=== PATIENT | female | born 1955 | race Two or more races ===

== ENCOUNTER 2017-04-08 01:26 | Emergency (ER) | payer BC, MEDICAID, OTHER ==
[~2017-04-08] VITALS: Ht 157.5 cm; Wt 70.8 kg
[~2017-04-08 01:26] MED LIST: ADAL20KI; GLYB5TAB66; INSU70IN9
[2017-04-08 01:48] VITALS: BP 155/92
[2017-04-08 02:17] LABS: Basophils # (auto) 0 uL; Basophils % (auto) 0.5 % (0.0-2.0); CONDITION Y; Eosinophils # (auto) 0.1 uL; Eosinophils % (auto) 1.9 % (0.0-7.0); Hematocrit 38.7 % (36.0-46.0); Hemoglobin 13.3 g/dL (12.2-16.2); Lymphocytes % (auto) 46.1 % (10.0-50.0); Mean Corpuscular Hemoglobin 30.3 pg (28.0-32.0); Mean Corpuscular Hgb Conc. 34.3 g/dL (32.0-36.0); Mean Corpuscular Volume 88.3 fL (80.0-100.0); Mean Platelet Volume 8.3 fL (7.4-10.4); Monocytes # (auto) 0.6 uL; Monocytes % (auto) 8.7 % (0.0-12.0); Neutrophils # (auto) 2.8 uL; Neutrophils % (auto) 42.8 % (37.0-80.0); Platelet Count (auto) 326 10^3/uL (140-450); Red Cell Distribution Width 13.4 % (11.6-16.0); White Blood Cell 6.4 10^3/uL (4.4-10.8)
[2017-04-08 02:33] LABS: Albumin 3.5 g/dL (3.4-5.0); BUN/Creatinine Ratio 28.1; Calcium 8.7 mg/dL (8.5-10.1); Potassium 3.8 mmol/L (3.5-5.1)
[2017-04-08 02:33] LABS: Urine Bilirubin Negative (Negative); Urine Blood Negative /uL (Negative); Urine Color Yellow (Yellow); Urine Glucose 4+ mg/dL (Normal); Urine Ketone TRACE (Negative); Urine Mucus FEW (None Seen); Urine Nitrite Negative (Negative); Urine RBC 1 /hpf (0 - 4); Urine Squamous Epithelial Cell FEW /hpf (<5); Urine Urobilinogen Normal (Negative); Urine pH 5.5 (5.0-8.0)
[2017-04-08 02:35] LABS: Bilirubin, Total 0.6 mg/dL (0.2-1.0); Total Protein 7.6 g/dL (6.4-8.2)
[2017-04-08 03:19] LABS: INR 1.05 (0.9-1.15); Partial Thromboplastin Time 23.4 sec (22.64-33.71); Prothrombin Time 11.4 sec (9.37-12.3)
== END 2017-04-08 04:26 | disposition left against medical advice (07) ==
LOC: ER 01:26
DX: E11.65 Type 2 diabetes mellitus with hyperglycemia (principal); Z53.21 Procedure and treatment not carried out due to patient leaving prior to being seen by health care provider
CPT/HCPCS: 36415; 80053; 81001; 81025; 82962; 85025; 85610; 85730

== ENCOUNTER 2018-02-10 14:33 | Emergency (ER) | payer MEDICARE, MEDICAID ==
[~2018-02-10] VITALS: Ht 157.5 cm; Wt 68.0 kg
[2018-02-10] MEDS ORDERED: KETOROLAC TROMETH 60MG/2ML VIAL IM ONE (17:00)
[2018-02-10 17:30] VITALS: BP 162/74
== END 2018-02-10 17:34 | disposition home or self-care (01) ==
LOC: ER 14:39
DX: M84.334 Stress fracture, left radius (principal); M13.832 Other specified arthritis, left wrist; E11.9 Type 2 diabetes mellitus without complications; I10 Essential (primary) hypertension; X58.XXXA Exposure to other specified factors, initial encounter; Y93.89 Activity, other specified; Y92.89 Other specified places as the place of occurrence of the external cause; Y99.8 Other external cause status
CPT/HCPCS: 73110; 82962; 96372; 99284; J1885

== ENCOUNTER 2018-11-04 21:44 | Inpatient (IN) | payer OTHER, MEDICAID ==
[~2018-11-04] VITALS: Ht 157.5 cm; Wt 70.3 kg
[2018-11-04 23:08] LABS: Urine Bacteria MOD /hpf (None Seen); Urine Blood Negative /uL (Negative); Urine Mucus FEW (None Seen); Urine Specific Gravity 1.008 (1.001-1.035); Urine WBC 65 /hpf (0 - 5); Urine WBC Clumps PRESENT /hpf (None Seen)
[2018-11-04 23:47] LABS: Basophils # (auto) 0 uL; Basophils % (auto) 0.3 % (0.0-2.0); Eosinophils # (auto) 0.1 uL; Hematocrit 38.2 % (36.0-46.0); Hemoglobin 12.7 g/dL (12.2-16.2); Lymphocytes # (auto) 3.1 uL; Lymphocytes % (auto) 42.5 % (10.0-50.0); Mean Corpuscular Hemoglobin 29.7 pg (28.0-32.0); Mean Corpuscular Hgb Conc. 33.2 g/dL (32.0-36.0); Mean Corpuscular Volume 89.6 fL (80.0-100.0); Monocytes # (auto) 0.5 uL; Monocytes % (auto) 6.6 % (0.0-12.0); Neutrophils # (auto) 3.5 uL; Neutrophils % (auto) 48.6 % (37.0-80.0); Nucleated Red Blood Cells % 0.1 %; Platelet Count (auto) 332 10^3/uL (140-450); Red Blood Cells 4.27 10^6/uL (4.0-5.20); Red Cell Distribution Width 13.5 % (11.8-14.3); White Blood Cell 7.3 10^3/uL (4.4-10.8)
[2018-11-04 23:58] LABS: Prothrombin Time 10.7 sec (9.27-12.13)
[2018-11-05 00:01] LABS: Alanine Aminotransferase 24 U/L (13-56); Albumin 3.7 g/dL (3.4-5.0); Anion Gap 5 (5-15); Aspartate Aminotransferase 15 U/L (15-37); Blood Urea Nitrogen 14 mg/dL (7-18); Calcium 8.9 mg/dL (8.5-10.1); Carbon Dioxide 27 mmol/L (21-32); Chloride 107 mmol/L (98-107); Glucose 132 mg/dL (74-106); Potassium 3.9 mmol/L (3.5-5.1); Sodium 139 mmol/L (136-145)
[2018-11-05 00:06] LABS: Alkaline Phosphatase 76 U/L (45-117); Bilirubin, Total 0.5 mg/dL (0.2-1.0); GFR African American 127 mL/min; GFR Non-African American 105 mL/min; Total Protein 7.6 g/dL (6.4-8.2)
[2018-11-05] MEDS ORDERED: SODIUM CHLORIDE 0.9% 500 ML IV ONE (06:54)
[2018-11-05] MEDS ORDERED: SODIUM CHLORIDE 0.9% 1,000 ML IV ONE (06:54)
[2018-11-05] MEDS ORDERED: cefTRIAXone 1GM/50ML D5W 50 ML IV ONE (07:00)
[2018-11-05] MEDS ORDERED: MECLIZINE HCL 25 MG TAB PO ONE (07:00)
[2018-11-05] MEDS ORDERED: SODIUM CHLORIDE 0.9% 1,000 ML IVB ONE (07:24)
[2018-11-05] MEDS ORDERED: InsuLIN REG 1unit/0.01ml Soln (100units/ml) SC SCH ×2 (11:30→22:00)
[2018-11-05] MEDS ORDERED: ACCU-CHEK COMFORT CURVE STRIP VI SCH (11:30)
[2018-11-05] MEDS ORDERED: LABETALOL HCL 5 MG/ML ML 20ML VIAL IV PRN (11:30)
[2018-11-05] MEDS ORDERED: DEXTROSE (50%) 50ML SYRG IV PRN (11:30)
[2018-11-05 14:30] VITALS: BP 126/72
[2018-11-06] MEDS ORDERED: ASPirin 81 mg TAB PO ONE (10:00)
[2018-11-06] MEDS ORDERED: ATORVASTATIN 20 MG TAB PO ONE (10:00)
== END 2018-11-05 15:02 | disposition home or self-care (01) | DRG 69 ==
LOC: ER 21:44 → TELE 11-05 11:34
PROVIDERS: ADMIT Internal Medicine; ATTEND Internal Medicine
DX: G45.9 Transient cerebral ischemic attack, unspecified (principal); I10 Essential (primary) hypertension; E11.65 Type 2 diabetes mellitus with hyperglycemia; M06.9 Rheumatoid arthritis, unspecified
CPT/HCPCS: 36415; 70450; 70545; 70551; 71046; 80053; 81001; 82962; 83735; 84443; 84484; 85025; 85610; 85730; 93005; 93886; 96361; 96365; G0378; J0696

== ENCOUNTER 2020-12-16 15:46 | Emergency (ER) | payer MEDICARE, MEDICAID ==
[~2020-12-16] VITALS: Ht 157.5 cm; Wt 72.6 kg
[~2020-12-16 15:46] MED LIST changes: +ATOR20TA PO; +METO25TA93 PO; +OMEP-335 PO
[2020-12-16 16:57] LABS: Urine Bacteria FEW /hpf (None Seen); Urine Blood Negative /uL (Negative); Urine Specific Gravity 1.014 (1.001-1.035); Urine WBC 68 /hpf (0 - 5); Urine WBC Clumps PRESENT /hpf (None Seen)
[2020-12-16 17:07] LABS: Basophils # (auto) 0 10 ^3/uL (0-0.2); Basophils % (auto) 0.5 % (0.0-2.0); Eosinophils # (auto) 0.2 10 ^3/uL (0-0.8); Eosinophils % (auto) 2.6 % (0.0-7.0); Lymphocytes # (auto) 2.1 10 ^3/uL (0.4-5.4); Lymphocytes % (auto) 29.7 % (10.0-50.0); Mean Corpuscular Hgb Conc. 34.2 g/dL (32.0-36.0); Mean Corpuscular Volume 87.7 fL (80.0-100.0); Monocytes # (auto) 0.6 10 ^3/uL (0-1.3); Monocytes % (auto) 7.9 % (0.0-12.0); Neutrophils # (auto) 4.2 10 ^3/uL (1.6-8.6); Neutrophils % (auto) 59.3 % (37.0-80.0); Nucleated Red Blood Cells % 0.2 %; Platelet Count (auto) 311 10^3/uL (140-450); Red Blood Cells 3.99 10^6/uL (4.0-5.20); Red Cell Distribution Width 13.1 % (11.8-14.3); White Blood Cell 7.2 10^3/uL (4.4-10.8)
[2020-12-16 17:23] LABS: Albumin 3.4 g/dL (3.4-5.0); Calcium 8.8 mg/dL (8.5-10.1); Magnesium 2.3 mg/dL (1.6-2.6); Potassium 4.3 mmol/L (3.5-5.1)
[2020-12-16 17:28] LABS: BUN/Creatinine Ratio 22.4; Bilirubin, Total 0.4 mg/dL (0.2-1.0); Total Protein 7.3 g/dL (6.4-8.2)
[2020-12-16] MEDS ORDERED: cefTRIAXone 1GM/50ML D5W 50 ML IV ONE (18:00)
[2020-12-16] MEDS ORDERED: SODIUM CHLORIDE 0.9% 1,000 ML IV ONE (18:00)
[2020-12-16] MEDS ORDERED: ONDANSETRON HCL 4 MG/2 ML VIAL IV ONE (18:00)
[2020-12-16 18:51] VITALS: BP 112/83
[2020-12-16] MEDS ORDERED: KETOROLAC TROMETH 30 MG/ML 1ML VIAL IV ONE (19:00)
== END 2020-12-16 19:10 | disposition home or self-care (01) ==
LOC: ER 15:46
DX: N39.0 Urinary tract infection, site not specified (principal); I10 Essential (primary) hypertension; E11.9 Type 2 diabetes mellitus without complications; Z79.4 Long term (current) use of insulin; Z79.899 Other long term (current) drug therapy; Z86.73 Personal history of transient ischemic attack (TIA), and cerebral infarction without residual deficits; Z90.49 Acquired absence of other specified parts of digestive tract; Z90.710 Acquired absence of both cervix and uterus
CPT/HCPCS: 36415; 74176; 80053; 81001; 83690; 83735; 85025; 87086; 96365; 96375; 99284; J0696; J1885; J2405; 87088; 87186

== ENCOUNTER 2021-07-01 06:05 | Inpatient (IN) | payer MEDICARE, MEDICAID ==
[~2021-07-01] VITALS: Ht 157.5 cm; Wt 70.4 kg
[2021-07-01] MEDS ORDERED: ALUM & MAG HYDROX-SIMETH LIQ(MAALOX) 30 ML PO ONE (07:30)
[2021-07-01] MEDS ORDERED: LIDOCAINE VISCOUS 2% 15ML UD PO ONE (07:30)
[2021-07-01] MEDS ORDERED: DONNATAL 5ml ORAL Elix (BELLADONNA ALK-PHENOBARB) PO ONE (07:30)
[2021-07-01 08:18] LABS: Basophils # (auto) 0 10 ^3/uL (0-0.2); Basophils % (auto) 0.3 % (0.0-2.0); Eosinophils # (auto) 0 10 ^3/uL (0-0.8); Eosinophils % (auto) 0.2 % (0.0-7.0); Hematocrit 35.1 % (36.0-46.0); Hemoglobin 11.8 g/dL (12.2-16.2); Lymphocytes # (auto) 1.5 10 ^3/uL (0.4-5.4); Lymphocytes % (auto) 14.2 % (10.0-50.0); Mean Corpuscular Hemoglobin 29.2 pg (28.0-32.0); Mean Corpuscular Hgb Conc. 33.7 g/dL (32.0-36.0); Mean Corpuscular Volume 86.6 fL (80.0-100.0); Monocytes # (auto) 0.8 10 ^3/uL (0-1.3); Monocytes % (auto) 6.9 % (0.0-12.0); Neutrophils # (auto) 8.5 10 ^3/uL (1.6-8.6); Neutrophils % (auto) 78.4 % (37.0-80.0); Red Blood Cells 4.05 10^6/uL (4.0-5.20); Red Cell Distribution Width 13.9 % (11.8-14.3); White Blood Cell 10.8 10^3/uL (4.4-10.8)
[2021-07-01] MEDS ORDERED: IOHEXOL 300 MG/ML 100ML BOTTLE IJ ONE (08:23)
[2021-07-01 08:36] LABS: Albumin 3.1 g/dL (3.4-5.0); Calcium 9.1 mg/dL (8.5-10.1); Magnesium 1.9 mg/dL (1.6-2.6); Potassium 3.8 mmol/L (3.5-5.1)
[2021-07-01 08:39] LABS: BUN/Creatinine Ratio 26.9; Bilirubin, Total 0.8 mg/dL (0.2-1.0); Total Protein 7.5 g/dL (6.4-8.2)
[2021-07-01] MEDS ORDERED: ONDANSETRON HCL 4 MG/2 ML VIAL IV ONE (08:45)
[2021-07-01] MEDS ORDERED: MORPHINE SULFATE 4 MG/ML SYR/VIAL IV ONE (08:45)
[2021-07-01] MEDS ORDERED: PANTOPRAZOLE 40 MG/10 ML VIAL INJ IV ONE (08:45)
[2021-07-01] MEDS ORDERED: metroNIDAZOLE 500MG/100ML 100 ML IV ONE (10:00)
[2021-07-01] MEDS ORDERED: cefTRIAXone 1GM/50ML D5W 50 ML IV ONE (10:00)
[2021-07-01 12:07] LABS: Urine Bacteria NONE SEEN /hpf (None Seen); Urine Blood Negative /uL (Negative); Urine Mucus FEW (None Seen); Urine WBC 1 /hpf (0 - 5)
[2021-07-01 12:15] LABS: Urine Specific Gravity > 1.050 (1.001-1.035)
[2021-07-01] MEDS ORDERED: MORPHINE SULFATE INJECTION 2 MG/ML SYRG IV PRN ×2 (13:00→15:15)
[2021-07-01] MEDS ORDERED: NITROGLYCERIN 0.4 MG SL TAB SL PRN ×2 (13:00→15:15)
[2021-07-01] MEDS: MORPHINE SULFATE 4 MG/ML SYR/VIAL IV PRN ×2 (13:26→20:56)
[2021-07-01] MEDS: ONDANSETRON HCL 4 MG/2 ML VIAL IV PRN ×2 (13:27→20:56)
[2021-07-01] MEDS ORDERED: IBUP600T28 PO (14:44)
[2021-07-01] MEDS ORDERED: ATOR10TA52 PO (14:44)
[2021-07-01] MEDS ORDERED: METF-370 PO (14:44)
[2021-07-01] MEDS ORDERED: ONDA-188 PO (14:44)
[2021-07-01] MEDS ORDERED: FOLI1TAB6 PO (14:44)
[2021-07-01] MEDS ORDERED: OMEP-263 PO (14:44)
[2021-07-01] MEDS ORDERED: INSU100I61 SC (14:44)
[2021-07-01] MEDS ORDERED: LISI20TA28 PO (14:44)
[2021-07-01] MEDS ORDERED: OMEG300C7 PO (14:45)
[2021-07-01] MEDS ORDERED: GABA300C10 PO (14:45)
[2021-07-01] MEDS ORDERED: DOCU-80 PO (14:45)
[2021-07-01] MEDS ORDERED: HYDR-4833 PO (14:46)
[2021-07-01] MEDS ORDERED: FAMO40TA7 PO (14:47)
[2021-07-01] MEDS ORDERED: INSUINJ37 SC (14:49)
[2021-07-01] MEDS ORDERED: DEXTROSE (50%) 50ML SYRG IV PRN (15:00)
[2021-07-01] MEDS ORDERED: hydrALAZINE HCL 20 MG/ML VL IV PRN (15:00)
[2021-07-01] MEDS ORDERED: ACETAMINOPHEN 325 MG TAB PO PRN (15:15)
[2021-07-01] MEDS ORDERED: DOCUSATE SOD 100 MG CAP PO PRN (15:15)
[2021-07-01] MEDS ORDERED: LORazepam 0.5 MG TAB PO PRN (15:15)
[2021-07-01] MEDS ORDERED: ALUM & MAG HYDROX-SIMETH LIQ(MAALOX) 30 ML PO PRN (15:15)
[2021-07-01 15:50] LABS: Cholesterol 181 mg/dL (< 200)
[2021-07-01 15:53] LABS: HDL Cholesterol 66 mg/dL (40-59); LDL Cholesterol 98 mg/dL (< 100); Triglycerides 65 mg/dL (< 150)
[2021-07-01 15:53] LABS: Free T4 (Free Thyroxine) 1.3 ng/dL (0.89-1.76)
[2021-07-01 15:54] LABS: Free T3 2.56 pg/mL (2.3-4.2)
[2021-07-01 16:32] VITALS: BP 125/71
[2021-07-01] MEDS: ACCU-CHEK COMFORT CURVE STRIP VI SCH ×2 (16:57→22:00)
[2021-07-01] MEDS: SODIUM CHLORIDE 0.9% 1,000 ML IV SCH (16:57)
[2021-07-01] MEDS: InsuLIN REG 1unit/0.01ml Soln (100units/ml) SC SCH ×2 (16:57→22:00)
[2021-07-01 19:27] LABS: Amphetamine Screen, Urine NEGATIVE (NEGATIVE); Barbiturate Scree,Urine NEGATIVE (NEGATIVE); Benzodiazephine Screen, Urine NEGATIVE (NEGATIVE); Cannabinoid Screen, Urine NEGATIVE (NEGATIVE); Cocaine Screen, Urine NEGATIVE (NEGATIVE); Phencyclidine Screen, Urine NEGATIVE (NEGATIVE)
[2021-07-01 19:35] LABS: Opiate Scree,Urine POSITIVE (NEGATIVE)
[2021-07-01] MEDS: metroNIDAZOLE 500MG/100ML 100 ML IV SCH (22:00)
[2021-07-01] MEDS: ATORVASTATIN 20 MG TAB PO SCH (22:00)
[2021-07-01 22:06] VITALS: BP 123/66
[2021-07-02] MEDS: ONDANSETRON HCL 4 MG/2 ML VIAL IV PRN ×2 (04:59→21:43)
[2021-07-02] MEDS: MORPHINE SULFATE 4 MG/ML SYR/VIAL IV PRN ×3 (04:59→17:02)
[2021-07-02 05:00] VITALS: BP 132/70
[2021-07-02] MEDS: metroNIDAZOLE 500MG/100ML 100 ML IV SCH ×3 (05:51→21:41)
[2021-07-02 06:09] LABS: Basophils # (auto) 0 10 ^3/uL (0-0.2); Basophils % (auto) 0.4 % (0.0-2.0); Eosinophils # (auto) 0.2 10 ^3/uL (0-0.8); Eosinophils % (auto) 1.6 % (0.0-7.0); Hematocrit 31.7 % (36.0-46.0); Hemoglobin 10.6 g/dL (12.2-16.2); Lymphocytes # (auto) 1.9 10 ^3/uL (0.4-5.4); Lymphocytes % (auto) 20.1 % (10.0-50.0); Mean Corpuscular Hemoglobin 29.5 pg (28.0-32.0); Mean Corpuscular Hgb Conc. 33.5 g/dL (32.0-36.0); Mean Corpuscular Volume 88.2 fL (80.0-100.0); Monocytes # (auto) 0.8 10 ^3/uL (0-1.3); Monocytes % (auto) 7.9 % (0.0-12.0); Neutrophils # (auto) 6.7 10 ^3/uL (1.6-8.6); Red Blood Cells 3.59 10^6/uL (4.0-5.20); Red Cell Distribution Width 13.9 % (11.8-14.3); White Blood Cell 9.6 10^3/uL (4.4-10.8)
[2021-07-02 06:18] LABS: INR 1.16 (0.9-1.15); Partial Thromboplastin Time 27.3 sec (23.6-33.0)
[2021-07-02 06:25] LABS: Albumin 2.4 g/dL (3.4-5.0); Calcium 8.3 mg/dL (8.5-10.1); Magnesium 2.5 mg/dL (1.6-2.6); Potassium 3.9 mmol/L (3.5-5.1)
[2021-07-02 06:33] LABS: BUN/Creatinine Ratio 22.4; Bilirubin, Total 0.7 mg/dL (0.2-1.0); Total Protein 6.4 g/dL (6.4-8.2); Uric Acid 3.1 mg/dL (2.6-6.0)
[2021-07-02] MEDS: InsuLIN REG 1unit/0.01ml Soln (100units/ml) SC SCH ×4 (07:00→21:41)
[2021-07-02] MEDS: ACCU-CHEK COMFORT CURVE STRIP VI SCH ×4 (08:35→21:42)
[2021-07-02 09:48] VITALS: BP 132/68
[2021-07-02] MEDS: PANTOPRAZOLE 40 MG/10 ML VIAL INJ IV SCH (10:55)
[2021-07-02] MEDS: SODIUM CHLORIDE 0.9% 1,000 ML IV SCH (10:55)
[2021-07-02] MEDS: cefTRIAXone 1GM/50ML D5W 50 ML IV SCH (10:55)
[2021-07-02 13:18] VITALS: BP 124/58
[2021-07-02 16:47] VITALS: BP 150/69
[2021-07-02] MEDS ORDERED: DEXTROSE (50%) 50ML SYRG IV PRN (18:00)
[2021-07-02] MEDS: ATORVASTATIN 20 MG TAB PO SCH (21:41)
[2021-07-02] MEDS: HYDROcodone-ACET 5/325MG TAB PO PRN (21:42)
[2021-07-02 22:00] VITALS: BP 142/63
[2021-07-03] MEDS: SODIUM CHLORIDE 0.9% 1,000 ML IV SCH ×2 (00:20→17:00)
[2021-07-03] MEDS: ONDANSETRON HCL 4 MG/2 ML VIAL IV PRN ×4 (04:45→21:52)
[2021-07-03] MEDS: MORPHINE SULFATE 4 MG/ML SYR/VIAL IV PRN ×3 (04:58→17:00)
[2021-07-03 05:00] VITALS: BP 141/74
[2021-07-03] MEDS: InsuLIN REG 1unit/0.01ml Soln (100units/ml) SC SCH ×4 (06:13→22:28)
[2021-07-03] MEDS: ACCU-CHEK COMFORT CURVE STRIP VI SCH ×4 (06:13→22:27)
[2021-07-03] MEDS: metroNIDAZOLE 500MG/100ML 100 ML IV SCH ×3 (06:15→22:26)
[2021-07-03] MEDS: PANTOPRAZOLE 40 MG/10 ML VIAL INJ IV SCH (08:34)
[2021-07-03] MEDS: cefTRIAXone 1GM/50ML D5W 50 ML IV SCH (08:34)
[2021-07-03 09:12] VITALS: BP 124/62
[2021-07-03 13:00] VITALS: BP 132/82
[2021-07-03 16:46] VITALS: BP 159/80
[2021-07-03] MEDS: MORPHINE SULFATE INJECTION 2 MG/ML SYRG IV PRN ×2 (17:00→21:51)
[2021-07-03 22:01] VITALS: BP 147/65
[2021-07-03] MEDS: ATORVASTATIN 20 MG TAB PO SCH (22:26)
[2021-07-04 05:00] VITALS: BP 114/59
[2021-07-04] MEDS: metroNIDAZOLE 500MG/100ML 100 ML IV SCH ×3 (06:49→23:19)
[2021-07-04] MEDS: ACCU-CHEK COMFORT CURVE STRIP VI SCH ×4 (06:50→23:21)
[2021-07-04] MEDS: InsuLIN REG 1unit/0.01ml Soln (100units/ml) SC SCH ×4 (06:51→23:24)
[2021-07-04] MEDS: MORPHINE SULFATE INJECTION 2 MG/ML SYRG IV PRN ×2 (07:13→13:59)
[2021-07-04] MEDS: ONDANSETRON HCL 4 MG/2 ML VIAL IV PRN ×2 (07:14→13:53)
[2021-07-04 09:24] VITALS: BP 114/76
[2021-07-04] MEDS: SODIUM CHLORIDE 0.9% 1,000 ML IV SCH (09:53)
[2021-07-04] MEDS: cefTRIAXone 1GM/50ML D5W 50 ML IV SCH (09:53)
[2021-07-04] MEDS ORDERED: GOLYTELY 4L KIT PO ONE (11:00)
[2021-07-04] MEDS: PANTOPRAZOLE 40 MG/10 ML VIAL INJ IV SCH (12:37)
[2021-07-04 13:00] VITALS: BP 130/86
[2021-07-04] MEDS: METOCLOPRAMIDE HCL 5MG/ml INJ 2ml VIAL IV SCH ×2 (16:12→23:20)
[2021-07-04 17:13] VITALS: BP 155/68
[2021-07-04 22:00] VITALS: BP 137/82
[2021-07-04] MEDS: ATORVASTATIN 20 MG TAB PO SCH (23:20)
[2021-07-05 05:00] VITALS: BP 159/72
[2021-07-05] MEDS: SODIUM CHLORIDE 0.9% 1,000 ML IV SCH ×2 (05:38→23:34)
[2021-07-05] MEDS: metroNIDAZOLE 500MG/100ML 100 ML IV SCH ×3 (05:38→23:35)
[2021-07-05] MEDS: METOCLOPRAMIDE HCL 5MG/ml INJ 2ml VIAL IV SCH ×3 (05:38→23:35)
[2021-07-05] MEDS: ACCU-CHEK COMFORT CURVE STRIP VI SCH ×4 (05:39→23:36)
[2021-07-05] MEDS: InsuLIN REG 1unit/0.01ml Soln (100units/ml) SC SCH ×4 (05:40→23:38)
[2021-07-05] MEDS: MORPHINE SULFATE INJECTION 2 MG/ML SYRG IV PRN ×2 (05:52→11:08)
[2021-07-05] MEDS ORDERED: diphenhdrAMINE HCL 50 MG/1 ML VL ONE (06:58)
[2021-07-05] MEDS: cefTRIAXone 1GM/50ML D5W 50 ML IV SCH (08:10)
[2021-07-05 08:31] VITALS: BP 159/76
[2021-07-05] MEDS: MIDAZOLAM HCL 5 MG/ML-1ML VIAL ONE ×3 (09:19→09:28)
[2021-07-05] MEDS: fentaNYL CITRATE 100 MCG/2 ML VL ONE ×3 (09:19→09:28)
[2021-07-05] MEDS: PANTOPRAZOLE 40 MG/10 ML VIAL INJ IV SCH (11:05)
[2021-07-05 12:41] VITALS: BP 139/71
[2021-07-05 17:18] VITALS: BP 160/77
[2021-07-05 22:00] VITALS: BP 143/71
[2021-07-05] MEDS: ATORVASTATIN 20 MG TAB PO SCH (23:35)
[2021-07-05] MEDS: HYDROcodone-ACET 5/325MG TAB PO PRN (23:37)
[2021-07-06 04:32] VITALS: BP 108/56
[2021-07-06] MEDS: ACCU-CHEK COMFORT CURVE STRIP VI SCH ×4 (06:38→22:18)
[2021-07-06] MEDS: metroNIDAZOLE 500MG/100ML 100 ML IV SCH ×3 (06:38→22:14)
[2021-07-06] MEDS: METOCLOPRAMIDE HCL 5MG/ml INJ 2ml VIAL IV SCH ×3 (06:38→22:00)
[2021-07-06] MEDS: InsuLIN REG 1unit/0.01ml Soln (100units/ml) SC SCH ×4 (06:40→22:17)
[2021-07-06 09:00] VITALS: BP_SYST 121; BP_SYST 140; BP_DIAS 65; BP_DIAS 82
[2021-07-06] MEDS: cefTRIAXone 1GM/50ML D5W 50 ML IV SCH (09:28)
[2021-07-06] MEDS: PANTOPRAZOLE 40 MG/10 ML VIAL INJ IV SCH (09:28)
[2021-07-06] MEDS: SODIUM CHLORIDE 0.9% 1,000 ML IV SCH (11:40)
[2021-07-06 12:51] VITALS: BP 133/76
[2021-07-06 17:04] VITALS: BP 139/69
[2021-07-06 22:00] VITALS: BP 169/71
[2021-07-06] MEDS: ATORVASTATIN 20 MG TAB PO SCH (22:14)
[2021-07-06] MEDS: HYDROcodone-ACET 5/325MG TAB PO PRN (22:34)
[2021-07-06] MEDS: ONDANSETRON HCL 4 MG/2 ML VIAL IV PRN (22:35)
[2021-07-07] MEDS: SODIUM CHLORIDE 0.9% 1,000 ML IV SCH (04:20)
[2021-07-07 05:00] VITALS: BP 140/74
[2021-07-07] MEDS: METOCLOPRAMIDE HCL 5MG/ml INJ 2ml VIAL IV SCH (05:54)
[2021-07-07] MEDS: metroNIDAZOLE 500MG/100ML 100 ML IV SCH (05:54)
[2021-07-07] MEDS: InsuLIN REG 1unit/0.01ml Soln (100units/ml) SC SCH ×2 (06:00→11:30)
[2021-07-07] MEDS: ACCU-CHEK COMFORT CURVE STRIP VI SCH ×2 (06:02→11:30)
[2021-07-07] MEDS: cefTRIAXone 1GM/50ML D5W 50 ML IV SCH (08:54)
[2021-07-07] MEDS: HYDROcodone-ACET 5/325MG TAB PO PRN (08:55)
[2021-07-07 08:58] VITALS: BP 128/62
[2021-07-07] MEDS: ONDANSETRON HCL 4 MG/2 ML VIAL IV PRN (08:59)
[2021-07-07] MEDS: PANTOPRAZOLE 40 MG/10 ML VIAL INJ IV SCH (09:01)
[2021-07-07 12:00] VITALS: BP 103/84
== END 2021-07-07 15:24 | disposition home or self-care (01) | DRG 394 ==
LOC: ER 06:05 → OVERFLOW 12:54 → WEST WING 14:49
PROVIDERS: ADMIT Hospitalist; ATTEND Internal Medicine
PROC: 0DBE8ZX Excision of Large Intestine, Via Natural or Artificial Opening Endoscopic, Diagnostic (ICD-10-PCS; principal; 2021-07-05 09:10)
DX: K55.039 Acute (reversible) ischemia of large intestine, extent unspecified (principal); K92.2 Gastrointestinal hemorrhage, unspecified; K21.9 Gastro-esophageal reflux disease without esophagitis; L80 Vitiligo; E11.21 Type 2 diabetes mellitus with diabetic nephropathy; E11.65 Type 2 diabetes mellitus with hyperglycemia; E66.01 Morbid (severe) obesity due to excess calories; I10 Essential (primary) hypertension; K64.4 Residual hemorrhoidal skin tags; K64.8 Other hemorrhoids; M16.12 Unilateral primary osteoarthritis, left hip; Z20.822 Contact with and (suspected) exposure to COVID-19; D64.9 Anemia, unspecified; E11.40 Type 2 diabetes mellitus with diabetic neuropathy, unspecified; E78.5 Hyperlipidemia, unspecified; Z86.73 Personal history of transient ischemic attack (TIA), and cerebral infarction without residual deficits; E88.09 Other disorders of plasma-protein metabolism, not elsewhere classified; Z82.3 Family history of stroke; Z82.49 Family history of ischemic heart disease and other diseases of the circulatory system; Z83.3 Family history of diabetes mellitus; Z90.49 Acquired absence of other specified parts of digestive tract; Z90.710 Acquired absence of both cervix and uterus; Z68.27 Body mass index [BMI] 27.0-27.9, adult
CPT/HCPCS: 36415; 71260; 74176; 74177; 80053; 80061; 80307; 81001; 82962; 83036; 83605; 83690; 83735; 83880; 84100; 84439; 84443; 84481; 84484; 84550; 85025; 85610; 85730; 87040; 87086; 87426; 93005; 96365; 96366; 96368; 96375; C9113; G0378; J0696; J1815; J2250; J2405; J3490

== ENCOUNTER 2022-02-21 13:57 | Emergency (ER) | payer MEDICARE, MEDICAID ==
[~2022-02-21 13:57] MED LIST changes: -ADAL20KI; +ATOR10TA52 PO; -ATOR20TA PO; +DOCU-80 PO; +FAMO40TA7 PO; +FOLI1TAB6 PO; +GABA300C10 PO; -GLYB5TAB66; +HYDR-4833 PO; +IBUP600T28 PO; +INSU100I61 SC; -INSU70IN9; +INSUINJ37 SC; +LISI20TA28 PO; +METF-370 PO; -METO25TA93 PO; +OMEG300C7 PO; +OMEP-263 PO; -OMEP-335 PO; +ONDA-188 PO
[2022-02-21] MEDS ORDERED: ACETAMINOPHEN 500 MG TAB PO ONE (16:00)
[2022-02-21] MEDS ORDERED: IBUP800T27 PO (16:59)
[2022-02-21 17:10] VITALS: BP 128/35
[2022-02-21] MEDS: HYDROcodone-ACET 5/325MG TAB PO ONE ×2 (17:14→17:17)
== END 2022-02-21 16:57 | disposition home or self-care (01) ==
LOC: ER 13:57
DX: S80.02XA Contusion of left knee, initial encounter (principal); M54.12 Radiculopathy, cervical region; W06.XXXA Fall from bed, initial encounter; Y93.89 Activity, other specified; Y92.89 Other specified places as the place of occurrence of the external cause; Y99.8 Other external cause status
CPT/HCPCS: 72040; 73562

== ENCOUNTER 2023-03-04 16:58 | Emergency (ER) | payer MEDICARE, MEDICAID ==
[~2023-03-04] VITALS: Ht 157.5 cm; Wt 66.5 kg
[~2023-03-04 16:58] MED LIST changes: +FOLI-119 PO; -FOLI1TAB6 PO; +GABA-1250 PO; -GABA300C10 PO; +IBUP-1456 PO; +IBUP1TAB5 PO; -IBUP600T28 PO; -LISI20TA28 PO; +LISI20TA56 PO; -OMEP-263 PO; +OMEP-448 PO
[2023-03-04] MEDS ORDERED: HYDROcodone-ACET 5/325MG TAB PO ONE (21:00)
[2023-03-04] MEDS ORDERED: ONDANSETRON ODT 4 MG TAB PO ONE (22:15)
[2023-03-04] MEDS: MORPHINE SULFATE INJ 2 MG/ml SYRG IV ONE (23:36)
[2023-03-05 00:10] VITALS: PULSE 76; RESP 12; O2SAT 95
[2023-03-05] MEDS: MORPHINE SULFATE INJ 2 MG/ml SYRG IV ONE (00:35)
[2023-03-05] MEDS ORDERED: HYDROcodone-ACET 5/325MG TAB PO ONE (04:15)
[2023-03-05 08:00] VITALS: BP 113/55; PULSE 73; RESP 16; TEMP 97.7; O2SAT 93
== END 2023-03-05 11:51 | disposition left against medical advice (07) ==
LOC: ER 16:58
DX: S72.092A Other fracture of head and neck of left femur, initial encounter for closed fracture (principal); S13.8XXA Sprain of joints and ligaments of other parts of neck, initial encounter; S83.8X2A Sprain of other specified parts of left knee, initial encounter; I10 Essential (primary) hypertension; E11.9 Type 2 diabetes mellitus without complications; M19.90 Unspecified osteoarthritis, unspecified site; Z86.73 Personal history of transient ischemic attack (TIA), and cerebral infarction without residual deficits; Z90.49 Acquired absence of other specified parts of digestive tract; Z90.710 Acquired absence of both cervix and uterus; Z79.1 Long term (current) use of non-steroidal anti-inflammatories (NSAID); Z79.84 Long term (current) use of oral hypoglycemic drugs; Z79.899 Other long term (current) drug therapy; Z79.4 Long term (current) use of insulin; W18.39XA Other fall on same level, initial encounter; Y93.01 Activity, walking, marching and hiking; Y92.098 Other place in other non-institutional residence as the place of occurrence of the external cause; Y99.8 Other external cause status
CPT/HCPCS: 70450; 72125; 73502; 73562; 73700; 74176; 82962; 96374; 99285; J2270; Q0162

== ENCOUNTER 2023-08-05 00:44 | Emergency (ER) | payer MEDICARE, MEDICAID ==
[~2023-08-05] VITALS: Ht 154.9 cm; Wt 75.0 kg
[2023-08-05] MEDS ORDERED: SODIUM CHLORIDE 0.9% 1,000 ML IV ONE (01:00)
[2023-08-05 01:15] VITALS: PULSE 102; RESP 12; O2SAT 94
[2023-08-05 01:34] LABS: Basophils # (auto) 0 10 ^3/uL (0-0.2); Basophils % (auto) 0.2 % (0.0-2.0); Eosinophils # (auto) 0 10 ^3/uL (0-0.8); Eosinophils % (auto) 0.3 % (0.0-7.0); Hemoglobin 12.1 g/dL (12.2-16.2); Lymphocytes # (auto) 1.4 10 ^3/uL (0.4-5.4); White Blood Cell 12.4 10^3/uL (4.4-10.8)
[2023-08-05 01:36] LABS: Hematocrit 37.2 % (36.0-46.0); Lymphocytes % (auto) 10.9 % (10.0-50.0); Mean Corpuscular Hemoglobin 28.9 pg (28.0-32.0); Mean Corpuscular Hgb Conc. 32.5 g/dL (32.0-36.0); Mean Corpuscular Volume 88.8 fL (80.0-100.0); Monocytes # (auto) 1.3 10 ^3/uL (0-1.3); Monocytes % (auto) 10.1 % (0.0-12.0); Neutrophils # (auto) 9.8 10 ^3/uL (1.6-8.6); Neutrophils % (auto) 78.5 % (37.0-80.0); Nucleated Red Blood Cells % 0.1 %; Red Blood Cells 4.19 10^6/uL (4.0-5.20); Red Cell Distribution Width 15.6 % (11.8-14.3)
[2023-08-05] MEDS ORDERED: ACETAMINOPHEN 325 MG TAB PO ONE (01:45)
[2023-08-05 01:51] LABS: Alanine Aminotransferase 13 U/L (7-40); Alkaline Phosphatase 124 U/L (46-116); Calcium 9.4 mg/dL (8.7-10.4); Carbon Dioxide 24 mmol/L (20-30); Chloride 99 mmol/L (98-107); Glucose 93 mg/dL (74-106); Potassium 4.7 mmol/L (3.5-5.1); Sodium 132 mmol/L (136-145)
[2023-08-05 01:52] LABS: Albumin 4.3 g/dL (3.2-4.8); Anion Gap 9 (5-15); Aspartate Aminotransferase 19 U/L (13-40); BUN/Creatinine Ratio 16.1 (10.0-20.0); Bilirubin, Total 0.4 mg/dL (0.2-1.0); Blood Urea Nitrogen 9 mg/dL (9-23); Total Protein 8.4 g/dL (5.7-8.2)
[2023-08-05 03:34] VITALS: TEMP 99.4
[2023-08-05 06:00] VITALS: BP 116/60; PULSE 90; RESP 20; O2SAT 95
== END 2023-08-05 06:15 | disposition left against medical advice (07) ==
LOC: ER 00:44 → EDBD 00:44 → ER 06:15
DX: T38.3X1A Poisoning by insulin and oral hypoglycemic [antidiabetic] drugs, accidental (unintentional), initial encounter (principal); I10 Essential (primary) hypertension; E11.9 Type 2 diabetes mellitus without complications; Z86.73 Personal history of transient ischemic attack (TIA), and cerebral infarction without residual deficits; Z90.49 Acquired absence of other specified parts of digestive tract; Z90.710 Acquired absence of both cervix and uterus; Z79.4 Long term (current) use of insulin; Z79.1 Long term (current) use of non-steroidal anti-inflammatories (NSAID); Z79.899 Other long term (current) drug therapy; Y92.89 Other specified places as the place of occurrence of the external cause
CPT/HCPCS: 36415; 80053; 82962; 83605; 84484; 85025; 93005; 96360; 99284; J7030